=== PATIENT | male | born 1965 | race Two or more races ===

== ENCOUNTER 2022-04-05 05:39 | Emergency (ER) | payer OTHER ==
[~2022-04-05] VITALS: Ht 172.7 cm; Wt 116.6 kg
[2022-04-05] MEDS ORDERED: ZESTRIL5 MG (06:01)
[2022-04-05] MEDS ORDERED: METFORMIN HCL500 MG (06:01)
[2022-04-05] MEDS ORDERED: CRESTOR5 MG (06:01)
== END 2022-04-05 13:13 | disposition home or self-care (01) ==
LOC: ER 05:39
DX: K57.90 Diverticulosis of intestine, part unspecified, without perforation or abscess without bleeding (principal); R10.31 Right lower quadrant pain; N28.1 Cyst of kidney, acquired